=== PATIENT | male | born 1955 | race Caucasian/White ===

== ENCOUNTER 2022-06-25 09:15 | Day surgery (SDC) | payer MEDICARE, SELFPAY ==
[2022-06-19 13:05] VITALS: BMI 25.8
[2022-06-25 09:32] VITALS: BP 124/67; PULSE 68; RESP 18; TEMP 36.3; O2SAT 98
[2022-06-25] MEDS: Lactated Ringers 1,000 ML 50 ML IVCONT (09:47)
--- NOTE | 2022-06-25 10:23 | P.CONAN_ITS ---
[facility] Past Medical History Medical History BPH (benign prostatic hyperplasia) Gout Hyperglycemia Hyperlipidemia Vitamin D deficiency Family History Family history of problems with anesthesia: No Surgical History Surgical History Hx of colonoscopy History of Problems with Anesthesia: No Social History Social History Patient Tobacco Use Status: Never used Tobacco Are you DNR?: No Advance Directives: No Advance Directives Information Provided: Yes Meds Allergies Allergy/AdvReac Type Severity Reaction Status Date / Time No Known Allergies Allergy Verified 06/19/22 13:04 Active Medications: Current Medications Lactated Ringer's (Lr) 1,000 mls @ 50 mls/hr IVCONT .Q20H ANI Last Admin: 06/25/22 09:47 Dose: 50 mls/hr Home Medications Medication Instructions Recorded Confirmed Last Taken Type No Known Home Meds 06/19/22 06/19/22 Unknown History Exam Exam Date and Time: June 25, 2022 1023 Height,Weight and Vital Signs: Height 5 ft 10 in Weight 81.647 kg Last Vital Signs Temp 97.3 F 06/25/22 09:32 Pulse 68 06/25/22 09:32 Resp 18 06/25/22 09:32 BP 124/67 06/25/22 09:32 Pulse Ox 98 06/25/22 09:32 O2 Del Method 06/25/22 09:32 Airway Mallampati Class: III TM Dist: >3cm Neck ROM: Full Assessment and Plan Assessment Anesthesia Assessment: Anesthesia Plan Discussed and Chart Reviewed Final Anesthetic Review Family History of Problems with Anesthesia: No History of Problems with Anesthesia: No NPO: Yes ASA Class: I Final Preanesthetic Review: No Changes in Pt Med Stat, Meds/Allgs Chart Reviewed, Consent Obtained/Reviewed and Anes Risks/Benef Reviewed Patient Risk: Low Procedure Risk: Low Anesthetic Plan Anesthetic Plan: MAC: Disposition: Standard PACU
--- NOTE | 2022-06-25 10:48 | MHC.SHP ---
Pre-Procedural Eval Section A Date of Service: 06/25/22 Section B Chief Complaint: screening Details of Present Illness: see H&P, no changes Relevant Family History (Specify if Yes): No Relevant Social History: None Present Medications: None Medical History: No relevant PMH History of Previous Operations: No relevant previous surgery Allergies: Allergies Allergy/AdvReac Type Severity Reaction Status Date / Time No Known Allergies Allergy Verified 06/19/22 13:04 Review of Systems Sugical H&P ROS: Negative: Constitution, Cardiovascular, Respiratory, Neurological, Psychiatric, Hem-Onc, Allergic/Immunologic, Gastrointestinal, Genitourinary, Musculoskeletal, Integumentary, Endocrine and Eyes/Ears/Nose/Throat Exam Surgical H&P Exam: Normal: HEENT, Normal: Heart, Normal: Lungs, Normal: Extremities, Normal: Abdomen, Normal: Skin and Normal: Neurological Plan Diagnosis/Plan: Unchanged I have reviewed the history and physical and performed a pertinent physical examination on my patient. No changes have occurred unless specified.
--- NOTE | 2022-06-25 11:11 | P.BOP_ITS ---
Brief Operative Note Date of Service: 06/25/22 Pre-op diagnosis: screening, diarrhea Post-op diagnosis: same Procedure: coloonoscopy Surgeon: Kendall Storm Anesthesia: MAC Was an Resident Care Spec used for this Procedure?: No Estimated blood loss (mL): 0 Pathology: none sent Condition: stable Disposition: PACU
[2022-06-25 11:14] VITALS: BP 93/48; PULSE 67; RESP 16; TEMP 36.3; O2SAT 97
[2022-06-25 11:29] VITALS: BP 106/59; PULSE 66; RESP 16; TEMP 36.5; O2SAT 99
[2022-06-25 11:49] VITALS: BP 132/68; PULSE 60; RESP 17; TEMP 36.8; O2SAT 98
--- NOTE | 2022-06-25 21:31 | OP_ITS ---
SURGEON: Kendall Storm MD INDICATIONS: Personal history of colon polyps, screening, and diarrhea. PREOPERATIVE DIAGNOSIS: POSTOPERATIVE DIAGNOSIS: PROCEDURE PERFORMED: Colonoscopy to the terminal ileum. 06/25/22 ESTIMATED BLOOD LOSS: COMPLICATIONS: ANESTHESIA: Monitored anesthesia care. ASSISTANTS: SPECIMENS: DESCRIPTION OF PROCEDURE: History and physical performed. The risks and benefits of the procedure were explained to the patient. Informed consent was obtained. The patient was placed in the left lateral decubitus position. A digital rectal exam was performed and was found to be normal. The Olympus pediatric video colonoscope was introduced into the rectum and advanced to the cecum without difficulty. The cecum was identified by transillumination, palpation, and identification of ileocecal valve. Examination was performed. The scope was removed. He tolerated the procedure well and was transferred to recovery area in stable condition. FINDINGS: The terminal ileum was examined and appeared normal. The visualized colonic mucosa was normal. The quality of the prep was good. No polyps were identified. Retroflexed examination showed some small internal hemorrhoids. IMPRESSION: Normal colonoscopy. RECOMMENDATION: 1. Follow up as needed. 2. Repeat colonoscopy is recommended in 10 years for average risk individuals. MD ELIZABETH Munoz/FIDELIA / [id number]
== END 2022-06-25 12:24 | disposition home or self-care (01) ==
PROVIDERS: PCP Internal Medicine; Visit Provider Internal Medicine Gastroenterology
PROC: 0DJD8ZZ Inspection of Lower Intestinal Tract, Via Natural or Artificial Opening Endoscopic (ICD-10-PCS; CPT 45378; principal; 2022-06-25 10:40)
DX: R19.7 Diarrhea, unspecified (principal); Z86.010 Personal history of colon polyps; K64.8 Other hemorrhoids; M10.9 Gout, unspecified; N40.0 Benign prostatic hyperplasia without lower urinary tract symptoms; E78.5 Hyperlipidemia, unspecified; E55.9 Vitamin D deficiency, unspecified; R73.9 Hyperglycemia, unspecified
CPT/HCPCS: 45378